=== PATIENT | male | born 1955 | race Caucasian/White ===

== ENCOUNTER 2018-02-18 06:47 | Day surgery (SDC) | payer BC ==
[2018-02-18 07:18] VITALS: BMI 31.2
--- NOTE | 2018-02-18 08:20 | CP.SDSHP ---
Same Day Surgery H & P - History Proposed Procedure: EGD Pre-Op Diagnosis: SEE NOTES - Previous Medical/Surgical History Cardiac: Hypertension Endocrine/Metabolic: Other Neuro: Other Misc: Other Pain: 4.Moderate Pain - Allergies Allergies: Allergies No Known Allergies Allergy (Verified 02/18/18 07:16) - Physical Exam General Appearance: N Vital Signs: Vital Signs 02/18/18 07:34 Temperature 97.3 F L Pulse Rate 56 L Respiratory 20 Rate Blood Pressure 125/67 O2 Sat by Pulse 99 Oximetry Mental Status: Alert & Oriented x3 Neuro: WNL Heart: Other Lungs: WNL GI: Other - {Optional Preform as Required} Abdomen: Other Rectal: Other Integument: WNL : WNL Ortho: Other ENT: WNL - Impression Pt. Evaluated Today:Candidate for Anesthesia & Procedure: Yes - Date & Time Time: 08:21 Short Stay Discharge - Short Stay Discharge Admitting Diagnosis/Reason for Visit: DYSPHAGIA Disposition: HOME/ ROUTINE
[2018-02-18] MEDS ORDERED: Propofol 10 mg/ml Inj (20 ML) ONE (08:27)
[2018-02-18] MEDS ORDERED: Belladonna-Phenobarbital PO ONE (08:50)
[2018-02-18 08:54] VITALS: TEMP 97.5
[2018-02-18] MEDS ORDERED: Sucralfate 1 gm/10 ml Oral Susp UD PO ONE (09:00)
[2018-02-18 09:25] VITALS: O2SAT 100
[2018-02-18 10:14] VITALS: BP 119/68; PULSE 61; RESP 18
== END 2018-02-18 09:50 | disposition home or self-care (01) ==
LOC: C.ENDO 06:47
PROVIDERS: ATTEND Specialist
DX: K29.70 Gastritis, unspecified, without bleeding (principal); K29.80 Duodenitis without bleeding; K44.9 Diaphragmatic hernia without obstruction or gangrene
CPT/HCPCS: 43239; 88305; 88342; J2001; J2704